=== PATIENT | female | born 1995 | race Caucasian/White ===

== ENCOUNTER 2016-12-22 15:44 | Outpatient (CLI) ==
[2013-06-28 07:23] VITALS: BMI 38.2
[2016-12-22 15:58] LABS: PROTHROMBIN TIME 12.1 SEC (9.3-11.0)
== END 2016-12-22 15:45 | disposition home or self-care (01) ==
LOC: NONPT 15:44
PROVIDERS: ATTEND Internal Medicine
DX: Z51.81 Encounter for therapeutic drug level monitoring (principal); Z79.01 Long term (current) use of anticoagulants
CPT/HCPCS: 85610